=== PATIENT | female | born 1965 | race Two or more races ===

== ENCOUNTER 2018-05-19 22:18 | Emergency (ER) | payer MEDICAID ==
[~2018-05-19] VITALS: Ht 172.7 cm; Wt 149.7 kg
--- NOTE | 2018-05-19 22:45 | NUR ---
PT CAME TO EMERGENCY DEPT. COMPLAINING OF INTERMITTENT PALPITATIONS/HEADACHE AND WEAKNESS X 5DAYS. PT AXO4. RESPIRATIONS EVEN AND UNLABORED. 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 PT HYPERTENSIVE ON THE MONITOR.
--- NOTE | 2018-05-19 23:02 | NUR ---
MAURICIO VALDES AT BEDSIDE.
[2018-05-19] MEDS ORDERED: hydrALAZINE HCL IV 20 MG VIAL ONE (23:13)
[2018-05-19 23:21] LABS: BASOPHILS % (AUTO) 0.6 % (0.0-2.0); EOSINOPHILS % (AUTO) 0.2 % (0.0-6.0); HEMATOCRIT 46 % (33-45); HEMOGLOBIN 15.8 g/dL (11.5-14.8); LYMPHOCYTES # (AUTO) 1.1 /CMM (0.8-4.8); LYMPHOCYTES % (AUTO) 13.5 % (20.0-44.0); MEAN CORPUSCULAR HGB CONC 35 g/dl (31.0-36.0); MEAN CORPUSCULAR VOLUME 91 fL (82-100); MONOCYTES # (AUTO) 0.7 /CMM (0.1-1.30); NEUTROPHILS # (AUTO) 6.2 /CMM (1.8-8.9); NEUTROPHILS % (AUTO) 76.7 % (43.0-81.0); PLATELET COUNT (AUTO) 189 /CMM (150-450); RED BLOOD CELL COUNT(AUTO) 5.03 MIL/uL (4.0-5.2); WHITE BLOOD COUNT (AUTO) 8.1 K/uL (4.3-11.0)
[2018-05-19] MEDS ORDERED: hydrALAZINE HCL IV 20 MG VIAL IV ONE (23:30)
[2018-05-19 23:35] LABS: CALCIUM, SERUM 9.8 mg/dL (8.5-10.1); CARBON DIOXIDE 27 mmol/L (21-32); CHLORIDE 102 mmol/L (98-107); CREATININE 0.8 mg/dL (0.6-1.3); GLUCOSE 114 mg/dL (74-106); POTASSIUM 3.8 mmol/L (3.5-5.1); SODIUM SERUM 139 mmol/L (136-145); UREA NITROGEN, BLOOD 9 mg/dL (7-18)
[2018-05-19 23:41] LABS: ALANINE AMINOTRANSFERASE 235 U/L (12-78); ALBUMIN 3.7 g/dL (3.4-5.0); ALKALINE PHOSPHATASE 85 U/L (46-116); ASPARTATE AMINOTRANSFERASE 126 U/L (15-37); BILIRUBIN,DIRECT 0.1 mg/dL (0.0-0.2); BILIRUBIN,TOTAL 0.5 mg/dL (0.2-1.0); TOTAL PROTEIN, SERUM 8.4 g/dL (6.4-8.2)
--- NOTE | 2018-05-19 23:50 | NUR ---
PT TAKEN TO CT.
[2018-05-20] MEDS ORDERED: hydrALAZINE HCL IV 20 MG VIAL IV ONE (01:00)
[2018-05-20 01:29] VITALS: BP 140/70
== END 2018-05-20 01:35 | disposition home or self-care (01) ==
LOC: ER 22:21
DX: I10 Essential (primary) hypertension (principal)
CPT/HCPCS: 36415; 70450; 71045; 80048; 80076; 84484; 85025; 85730; 93005; 96374; 96376; 99284; A4606; J0360